=== PATIENT | female | born 1985 | race Caucasian/White ===

== ENCOUNTER → 2018-06-02 | Outpatient (CLI) | payer OTHER ==
--- NOTE | 2018-06-02 14:06 | US ---
EXAMINATION TYPE: Transabdominal DATE OF EXAM: 12/02/17 COMPARISON: NONE CLINICAL HISTORY: Z36 CONFIRM DATES. EXAM PERFORMED: Transabdominal (TA) EXAM MEASUREMENTS: GESTATIONAL AGE / DATING Physician Established: Not yet established Dates by LMP: (8 weeks/6 days) EDC: 01/06/2019 Dates by First Scan: No previous this is first scan Dates by Current Scan for: (9 weeks/0 days) EDC: 01/05/2019 MATERNAL ANATOMY Uterus: 10.8 x 5.8 x 6.1 cm Right Ovary: 2.5 x 1.4 x 1.2 cm Left Ovary: 2.7 x 2.1 x 1.4 cm Post CDS / Adnexa: wnl Presence of free fluid: No Presence of corpus luteal cyst: Cyst visualized left ovary measuring 1.3 x 1.0 x 1.2 cm Presence of subchorionic bleed: No GESTATION / SURVEY CRL: 2.2 cm (9 weeks/0 days) Yolk Sac (normal less than 6mm): 3 mm Heart Rate: 174 bpm Rhythm: Normal IUP: Viable IUP Date of LMP: 04/01/2018 Beta HcG (if available): Not available at this time Viable IUP, measurements consistent with dates. IMPRESSION: Viable intrauterine of 9 weeks 0 days and an EDC of 01/05/2019.
== END | disposition home or self-care (01) ==
LOC: RADUSWWP 09:46
PROVIDERS: ATTEND Obstetrics & Gynecology
DX: Z36.9 Encounter for antenatal screening, unspecified (principal); Z3A.09 9 weeks gestation of pregnancy
CPT/HCPCS: 76801

== ENCOUNTER → 2018-08-13 | Outpatient (CLI) | payer OTHER ==
--- NOTE | 2018-08-13 09:57 | US ---
EXAMINATION TYPE: US OB anatomy transabd DATE OF EXAM: 08/13/2018 COMPARISON: First trimester ultrasound June 02, 2018 HISTORY: O36.62F0 large for dates, second trimester TECHNIQUE: Transabdominal (TA) EXAM MEASUREMENTS: GESTATIONAL AGE / DATING Physician Established: (19 weeks/1 day) EDC: 01/06/2019 Dates by LMP: (19 weeks/1 day) EDC: 01/06/2019 Dates by First Scan: (19 weeks/1 day) EDC: 01/06/2019 Dates by Current Scan for: (20 weeks/0 days) EDC: 12/31/2018 SURVEY IUP: Single PLACENTA: Fundal PREVIA: No previa EUNICE: 10.7 cm Normal CERVICAL LENGTH (transabdominal: norm > 3.0cm): 3.7 cm BIOMETRY PRESENTATION: Vertex LIE: Longitudinal BPD: 4.7 cm 20 weeks / 1 day HC: 17.3 cm 19 weeks / 6 days AC: 14.4 cm 19 weeks / 5 days FL: 3.3 cm 20 weeks / 2 days ESTIMATED WEIGHT IN GRAMS: 325.05 grams ESTIMATED WEIGHT IN LBS/OZ: 0 lbs. 11.0 oz. WEIGHT PERCENTAGE BASED ON ESTABLISHED DATE: 89.5 % HC/AC: 1.21 Normal FL/AC: 23.01 Normal HEART RATE: 155 bpm RHYTHM: Normal ANATOMY SEEN (within normal limits): * Lateral Vent (< 1 cm) 0.4 cm * Cisterna Magna (< 1.1 cm) 0.4 cm * Nuchal Fold (< 0.6 cm) 0.58 cm * Cerebellum (varies with age) 2.0 cm Choroid Plexus (bilateral) Midline Falx Cavus Septi Pellucidi Four Chamber Heart Outflow tracts: LVOT/RVOT Stomach Situs Nose / Lips Diaphragm Kidneys (bilateral) Bladder Cord Insert Three Vessel Cord Longitudinal Spine Transverse Spine Arms (bilateral) Legs (bilateral) Single, live, IUP,20 weeks/0 days, EDC: 12/31/2018, HEART RATE: 155 bpm. Single live intrauterine gestation is redemonstrated. Normal cephalad presentation to fetus is curren tly seen. No ultrasound evidence for placenta previa. Amniotic fluid index is calculated within vandana l limits. biometry measurements are congruent and felt within normal limits. Detailed anatomica l survey shows no suspicious abnormality during real-time scanning. Still images saved show suboptima l visualization of four-chamber heart and outflow tracts which are better seen towards end of study. IMPRESSION: As above
== END ==
LOC: RADUSWWP 08:15
PROVIDERS: ATTEND Obstetrics & Gynecology
DX: O36.62X0 Maternal care for excessive fetal growth, second trimester, not applicable or unspecified (principal); Z3A.20 20 weeks gestation of pregnancy
CPT/HCPCS: 76811

== ENCOUNTER → 2018-12-02 | Outpatient (CLI) | payer OTHER ==
--- NOTE | 2018-12-02 11:33 | US ---
EXAMINATION TYPE: US OB >= 14 wk fetus DATE OF EXAM: 12/02/2018 COMPARISON: US CLINICAL HISTORY: [id number] Large For Dates; TECHNIQUE: Transabdominal (TA) GESTATIONAL AGE / DATING Physician Established: ( 35 weeks/0 days) EDC: 01/06/2019 Dates by LMP: (35 weeks/0 days) EDC: 01/06/2019 Dates by First Scan: (35 weeks/0 days) EDC: 01/06/2019 Dates by Current Scan: (35 weeks/6 days) EDC: 12/31/2018 Beta HCG (if available): NA SURVEY IUP: Single PLACENTA: Fundal Anterior PREVIA: No Previa EUNICE: 11.7 cm Normal CERVICAL LENGTH (transabdominal: norm > 3.0cm): 3.8 cm BIOMETRY PRESENTATION: Vertex LIE: Transverse with head maternal right BPD: 9.4 cm 38 weeks / 0 days HC: 32.4 cm 36 weeks / 5 days AC: 31.6 cm 35 weeks / 4 days FL: 6.9 cm 35 weeks / 3 days ESTIMATED WEIGHT IN GRAMS: 2790.0 grams ESTIMATED WEIGHT IN LBS/OZ: 6 lbs. 2 oz. WEIGHT PERCENTAGE BASED ON ESTABLISHED DATES: 72.2% HC/AC: 1.03 Normal FL/AC: 21.87 Normal HEART RATE: 161 bpm RHYTHM: Normal Single, viable IUP,35 weeks/6 days, EDC: 12/31/2018, HR 161bpm. anatomy assessment was not performed. IMPRESSION Single, viable IUP,35 weeks/6 days, EDC: 12/31/2018, HR 161bpm. :
== END | disposition home or self-care (01) ==
LOC: RADUSWWP 09:42
PROVIDERS: ATTEND Obstetrics & Gynecology
DX: O36.63X0 Maternal care for excessive fetal growth, third trimester, not applicable or unspecified (principal); Z3A.35 35 weeks gestation of pregnancy
CPT/HCPCS: 76805

== ENCOUNTER 2018-12-05 17:15 | Outpatient (CLI) | payer OTHER ==
[2018-12-05 17:57] VITALS: PULSE 82; RESP 16; TEMP 97.4
[2018-12-05 17:59] LABS: Amorphous Sediment,Urine Occasional /hpf; Appearance,Urine Cloudy (Clear); Bacteria,Urine Moderate /hpf; Bilirubin,Urine Negative (Negative); Blood,Urine Negative (Negative); Color,Urine Light Yellow; Glucose,Urine (UA) Negative (Negative); Ketones,Urine Negative (Negative); Leukocyte Esterase,Urine Negative (Negative); Nitrite,Urine Negative (Negative); PH, Urine 7.5 (5.0-8.0); Protein,Urine Negative (Negative); RBC,Urine 1 /hpf (0-5); Squamous Epithelial Cell,Urine 4 /hpf (0-4); Urobilinogen,Urine <2.0 mg/dL (<2.0); WBC,Urine 4 /hpf (0-5)
[2018-12-05 18:09] LABS: Creatinine,Urine Random 44.5 mg/dL
[2018-12-05 18:41] LABS: ALT 28 U/L (9-52); AST 21 U/L (14-36); Blood Urea Nitrogen 7 mg/dL (7-17); LDH 393 U/L (313-618)
[2018-12-05 18:48] LABS: Anisocytosis Slight; Basophils % (A) 0 %; Eosinophils # (A) 0.1 k/uL (0-0.7); Eosinophils % (A) 1 %; HCT 35.1 % (34.0-46.0); HGB 12.7 gm/dL (11.4-16.0); Lymphocytes # (A) 2.1 k/uL (1.0-4.8); Lymphocytes % (A) 26 %; MCH 32.9 pg (25.0-35.0); MCHC 36.1 g/dL (31.0-37.0); MCV 91.1 fL (80.0-100.0); Mean Platelet Volume 10.1; Monocytes # (A) 0.5 k/uL (0-1.0); Monocytes % (A) 6 %; Neutrophils # (A) 5.5 k/uL (1.3-7.7); Neutrophils % (A) 66 %; Platelet Count 284 k/uL (150-450); RBC 3.85 m/uL (3.80-5.40); RDW 16.2 % (11.5-15.5); WBC 8.3 k/uL (3.8-10.6)
[2018-12-05 18:57] LABS: Uric Acid 3.3 mg/dL (3.7-7.4)
[2018-12-05] MEDS ORDERED: BETAMET ACET-BETAMETH SOD PHOS 6 MG/ML VIAL IM SCH (19:15)
--- NOTE | 2018-12-05 21:34 | US ---
EXAMINATION TYPE: US OB limited DATE OF EXAM: 12/05/2018 COMPARISON: NONE CLINICAL HISTORY: EUNICE . EXAM PERFORMED: Transabdominal (TA) GESTATIONAL AGE / DATING Physician Established: (35 weeks/3 days) EDC: 01/06/19 No growth performed on today?s study per ordering physician SURVEY EUNICE: 12.0 cm Ultrasound evidence of premature rupture of membranes? no HEART RATE: 151 bpm bpm RHYTHM: Regular IMPRESSION: 1. EUNICE 12.0 cm within normal limits.
[2018-12-05 23:30] VITALS: BP 134/96
--- NOTE | 2018-12-05 23:47 | P.MSEPDOC ---
Presenting Problems - Arrival Data Date of Arrival on Unit: 12/05/18 Time of Arrival on Unit: 17:15 Mode of Transport: Portable - Complaint OB-Reason for Admission/Chief Complaint: PIH Medical History - Information : 1 Para: 0 Term: 0 : 0 Abortions: Spontaneous or Elective: 0 Number of Living Children: 0 - Gestational Age Gestational Age by JACK (wks/days): 35 Weeks and 2 Days Review of Systems - Review of Systems Constitutional: No problems Breast: No problems ENT: No problems Cardiovascular: No problems Respiratory: No problems Gastrointestinal: No problems Genitourinary: No problems Musculoskeletal: No problems Neurological: No problems Skin: No problems Vital Signs - Temperature Temperature: 97.4 F Temperature Source: Temporal Artery Scan - Pulse Left Pulse Oximetery Pulse Rate: 82 Pulse Assessment Method: Pulse Oximetry - Respirations Respiratory Rate: 16 Oxygen Delivery Method: Room Air - Blood Pressure Right Arm Blood Pressure: 134/96 Blood Pressure Mean: 108 Blood Pressure Source: Automatic Cuff Medical Screen Scoring (Pre) - Cervical Exam Dilation: Exam Deferred Effacement: Exam Deferred Membranes: Intact - Uterine Contractions Frequency: N/A Duration: N/A Intensity: N/A - Maternal Vital Signs Maternal Temperature: N/A Maternal Blood Pressure: Systolic >139 = 2 Signs of Preeclampsia: N/A Maternal Respirations: N/A - Pain Assessment Pain Location and Character: Generalized Pain Scale Used: Numeric (1 - 10) Pain Intensity: 0 Pain Management Goal: 0 Pain Behavior: Vocalization - Maternal Trauma Maternal Trauma: N/A - Assessment Baseline FHR: 145 Heart Rate - NICHD Category: Category I (Normal) = 0 NST: Reactive Position: N/A Station: N/A - Total Score Total Score (Pre): 2 - Level of Risk Level of Risk: Low (0-5) Physician Notification (Pre) - Physician Notified Physician Notified Date: 12/05/18 Physician Notified Time: 17:41 Physician/Practitioner Notifed:: Spoke With: Dr. Jung New Order Received: Yes ([facility] labs, bp q30,mins) Medical Screen Scoring (Post) - Cervical Exam Dilation: Exam Deferred Effacement: Exam Deferred - Uterine Contractions Frequency: N/A - Maternal Vital Signs Maternal Blood Pressure: Diastolic > 89 = 1 Signs of Preeclampsia: N/A Maternal Respirations: N/A - Total Score Total Score (Post): 1 - Post Treatment Level of Risk Post Treatment Level of Risk: Low (0-5) Physician Notification (Post) - Physician Notified Physician Notified Date: 12/05/18 Physician Notified Time: 20:20 Physician/Practitioner Notified:: Dr Erich Myles Order Received: Yes - Notification Comment Comment: educate pt on preeclampsia s/sx, follow up tomorrow for second dose of Celestone and an NST, keep appt with Dr Wolfe for this Friday Disposition - Disposition OB Disposition: Discharge to home Discharge Date: 12/05/18 Discharge Time: 20:40 I agree with the RN Medical Screening Exam: Yes Physician's MSE Comment: BPs are elevated. She has no headache, vision changes, RUQ pain or swelling. REflexes are normal. She was advised of all s/s of pre-eclampsia. HEr labs were all wnl except the pc ratio which was 0.404 which puts her in mild pre- eclampsia. NST reactive and EUNICE=12cm. I gave her a dose of celestone in case she will need to be delivered before 37 weeks. She will return tomorrow for another dose and an NST and BP check. If she remains in the mild pre-eclampsia range, and baby is showing a good tracing I will have her follow up this week with DR Wolfe and M for US with dopplers and BPP. Risk & Benefit of care provided described in d/c instruction: Yes Diagnosis: MILD TO MODERATE PRE-ECLAMPSIA, THIRD TRIMESTER
== END 2018-12-05 20:40 | disposition home or self-care (01) ==
LOC: FBPOP 17:15
PROVIDERS: ATTEND Obstetrics & Gynecology
DX: O14.03 Mild to moderate pre-eclampsia, third trimester (principal); Z3A.35 35 weeks gestation of pregnancy
CPT/HCPCS: 59025; 99214; 96372; 82570; 84156; 82565; 83615; 84450; 84460; 84520; 84550; 85025; 81001; 76815; J0702

== ENCOUNTER 2018-12-06 16:25 | Outpatient (CLI) | payer OTHER ==
[2018-12-06] MEDS ORDERED: BETAMET ACET-BETAMETH SOD PHOS 6 MG/ML VIAL IM SCH (17:45)
[2018-12-06 18:39] VITALS: BP 126/81; PULSE 95; RESP 16; TEMP 97.9
--- NOTE | 2018-12-07 08:30 | P.MSEPDOC ---
Presenting Problems - Arrival Data Date of Arrival on Unit: 12/06/18 Time of Arrival on Unit: 16:25 Mode of Transport: Ambulatory - Complaint OB-Reason for Admission/Chief Complaint: NST, Celestone Injection Medical History - Information : 1 Para: 0 Term: 0 : 0 Abortions: Spontaneous or Elective: 0 Number of Living Children: 0 - Gestational Age Gestational Age by JACK (wks/days): 35 Weeks and 4 Days Review of Systems - Review of Systems Constitutional: No problems Breast: No problems ENT: No problems Cardiovascular: No problems Respiratory: No problems Gastrointestinal: No problems Genitourinary: No problems Musculoskeletal: No problems Neurological: No problems Skin: No problems Vital Signs - Temperature Temperature: 97.9 F Temperature Source: Temporal Artery Scan - Pulse Right Sitting Pulse Rate: 95 Pulse Assessment Method: Automatic Cuff - Respirations Respiratory Rate: 16 Oxygen Delivery Method: Room Air - Blood Pressure Right Arm Blood Pressure: 126/81 Blood Pressure Mean: 96 Blood Pressure Source: Automatic Cuff Medical Screen Scoring (Pre) - Cervical Exam Dilation: Exam Deferred Effacement: Exam Deferred Membranes: Intact - Uterine Contractions Frequency: < 36 weeks = 6 Duration: > 40 seconds = 2 - Maternal Vital Signs Maternal Temperature: N/A Maternal Blood Pressure: N/A Maternal Respirations: N/A - Pain Assessment Pain Scale Used: Numeric (1 - 10) Pain Intensity: 4 Pain Management Goal: 6 Pain Description: *Acute Pain Frequency: Occasional Pain Duration Units: Hours Pain Behavior: None Exhibited Pain Aggravating Factors: None - Maternal Trauma Maternal Trauma: N/A - Assessment Baseline FHR: 130 Heart Rate - NICHD Category: Category I (Normal) = 0 NST: Reactive Position: N/A Station: N/A - Total Score Total Score (Pre): 8 - Level of Risk Level of Risk: Medium (6-9) Physician Notification (Pre) - Physician Notified Physician Notified Date: 12/06/18 Physician Notified Time: 17:32 Physician/Practitioner Notifed:: Erich New Order Received: Yes (celestone, d/c home) - Notification Comment Comment: Pt seen by Dr. Jung in triage Disposition - Disposition OB Disposition: Discharge to home Discharge Date: 12/06/18 Discharge Time: 18:03 I agree with the RN Medical Screening Exam: Yes Risk & Benefit of care provided described in d/c instruction: Yes Diagnosis: GESTATIONAL HTN W/O SIGNIFICANT PROTEINURIA, THIRD TRIMESTER
== END 2018-12-06 18:03 | disposition home or self-care (01) ==
LOC: FBPOP 16:25
PROVIDERS: ATTEND Obstetrics & Gynecology
DX: O13.3 Gestational [pregnancy-induced] hypertension without significant proteinuria, third trimester (principal); Z3A.35 35 weeks gestation of pregnancy
CPT/HCPCS: 59025; 99213; 96372; J0702

== ENCOUNTER 2018-12-15 15:32 | Inpatient (IN) | payer OTHER ==
--- NOTE | 2018-12-15 12:44 | P.HPOB ---
History of Present Illness H&P Date: 12/15/18 Chief Complaint: Gestational hypertension This is a 33 y.o. female, 1, para 0 with an estimated date of confinement of 01/06/2019, estimated gestational age of 36-6/7 weeks who presents for cervidil cervical ripening followed by oxytocin induction of labor due to gestational hypertension. She was intitially diagnosed with elevated BP on 12/04/2018 & 12/05/2018. Her protein/creatinine ratio was 0.4. She did receive 2 doses of Celestone at that time. Since then her BPs have been ok and labs normal. She has no other sx, but her P/C ratio is still elevated to 0.31. I spoke with Dr. Gibson ([facility]), who recommends she be delivered at 37 weeks. She is feeling good movement and denies headaches or blurred vision. labs: GC/Chlamydia-neg Hepatitis B surface antigen-neg Rubella-immune RPR-NR Blood type-A+ Antibody screen-neg HIV-NR Hemoglobin-13.1 Random glucose-54 Quad-neg 1 hour GTT-156, 3 hour GTT-WNL GBS-neg OB Hx: 1st [employer] Hx: No hx STDs Social Hx: . 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 ctxs) Genitourinary: Reports pelvic pain, Reports Musculoskeletal: Reports low back pain Integumentary: Denies pruritus, Denies rash Neurological: Denies numbness, Denies weakness Psychiatric: Denies anxiety, Denies depression Past Medical History Additional Past Medical History / Comment(s): Gestational hypertension History of Any Multi-Drug Resistant Organisms: None Reported Past Surgical History: Breast Surgery (R. breast biopsy) Past Anesthesia/Blood Transfusion Reactions: No Reported Reaction Past Psychological History: ADD/ADHD Smoking Status: Never smoker Past Alcohol Use History: None Reported Past Drug Use History: None Reported - Past Family History Mother Family Medical History: No Reported History Medications and Allergies Home Medications Medication Instructions Recorded Confirmed Type Pnv 11/Iron Fum/Folic Acid/Om3 1 each PO DAILY 12/05/18 12/06/18 History [Virt-Cal Dha Softgel] Allergies Allergy/AdvReac Type Severity Reaction Status Date / Time amoxicillin AdvReac Rash/Hives Verified 12/06/18 17:00 Exam Osteopathic Statement: *. No significant issues noted on an osteopathic structural exam other than those noted in the History and Physical/Consult. HEENT: within normal limits Heart: regular rate and rhythm Lungs: clear to auscultation bilaterally Abdomen: Cervix: closed/70%/-1 heart tones: category 1, reactive Contractions: none Extremities: neg. Ezio's Assessment and Plan (1) Gestational hypertension affecting first Status: Acute Code(s): O13.9 - GESTATIONAL HTN W/O SIGNIFICANT PROTEINURIA, UNSP TRIMESTER SNOMED Code(s): 06273784 Plan: Proceed with cervidil cervical ripening followed by oxytocin induction of labor. Epidural anesthesia if desired.
[2018-12-15] MEDS ORDERED: DINOPROSTONE 10 MG INSERT.ER VAGINAL ONE (15:48)
[2018-12-15] MEDS ORDERED: BUTORPHANOL 1 MG/ML 1 ML VIAL IV PRN (15:48)
[2018-12-15] MEDS ORDERED: ZOLPIDEM 5 MG TAB PO PRN (15:48)
[2018-12-15 15:56] VITALS: BMI 26.6
[2018-12-16] MEDS ORDERED: LIDOCAINE 0.5% (PF) 5 MG/ML (50 ML SDV) SQ PRN (04:18)
[2018-12-16] MEDS ORDERED: LIDOCAINE 1% 20 ML VIAL (10MG/ML) FOR IV START INTRADERMA PRN (04:18)
[2018-12-16] MEDS ORDERED: OXYTOCIN 10 UNIT/ML 1 ML VIAL IM PRN (04:18)
[2018-12-16] MEDS ORDERED: OXYTOCIN 30 UNITS/500 ML NS 30 UNIT in SALINE 1 500ML.BAG IV SCH (04:18)
[2018-12-16] MEDS ORDERED: TERBUTALINE 1 MG/ML VIAL SQ PRN (04:18)
[2018-12-16] MEDS ORDERED: CARBOPROST TROMETHAMINE 250 MCG/ML 1 ML AMP IM PRN (04:18)
[2018-12-16 05:24] LABS: Glucose,Urine (UA) Negative (Negative); Ketones,Urine Negative (Negative); Protein,Urine Trace (Negative)
[2018-12-16] MEDS: LACTATED RINGERS 1,000 ML IV SCH ×2 (06:20→19:56)
[2018-12-16 06:38] LABS: Basophils % (A) 0 %; Eosinophils # (A) 0.1 k/uL (0-0.7); Eosinophils % (A) 1 %; HCT 42.7 % (34.0-46.0); HGB 14.5 gm/dL (11.4-16.0); Lymphocytes # (A) 2.1 k/uL (1.0-4.8); Lymphocytes % (A) 15 %; MCH 32.7 pg (25.0-35.0); MCHC 34.1 g/dL (31.0-37.0); MCV 95.9 fL (80.0-100.0); Mean Platelet Volume 7.1; Monocytes # (A) 0.7 k/uL (0-1.0); Monocytes % (A) 5 %; Neutrophils # (A) 10.6 k/uL (1.3-7.7); Neutrophils % (A) 78 %; Platelet Count 331 k/uL (150-450); RBC 4.45 m/uL (3.80-5.40); RDW 13.1 % (11.5-15.5); WBC 13.5 k/uL (3.8-10.6)
[2018-12-16] MEDS ORDERED: BUTORPHANOL 1 MG/ML 1 ML VIAL IV PRN (07:20)
[2018-12-16] MEDS ORDERED: SODIUM CHLORIDE 0.9% 100 ML BAG ONE (11:17)
[2018-12-16] MEDS ORDERED: ROPIVACAINE 5MG/ML 20ML VIAL ONE (11:17)
[2018-12-16] MEDS ORDERED: fentaNYL (PF) 50 MCG/ML 5 ML AMP ONE (11:17)
[2018-12-16] MEDS ORDERED: ROPIVACAINE 100 MG, fentaNYL (PF) 200 MCG in SODIUM CHLORIDE 0.9% 76 ML EPIDURAL ONE (12:43)
--- NOTE | 2018-12-16 13:19 | P.PROBDLV ---
Vaginal Delivery Note - . Vaginal Delivery Note: The patient underwent Cervidil cervical ripening followed by oxytocin induction of labor. She was ruptured this morning when she was approximately 1-1/2 cm/80%/-1 station. She did receive epidural anesthesia at 3 cm. When she reached complete dilation, she began pushing. 's head came to a crown. With one further push, the 's head delivered across the perineum followed by the anterior shoulder in a left occiput anterior lie. Nuchal cord times one was reduced around the infant's head. Nose and mouth were bulb suctioned. With one remaining push, the remainder the easily delivered and was placed on mother's abdomen. Cord was clamped and cut and infant was taken to warmer for evaluation. A viable male infant was noted with scores of 8 at 1 minute and 9 at 5 minutes and weight of 6 lbs. 1 oz. Placenta delivered shortly thereafter, intact, with a three-vessel cord. Marginal cord insertion was noted. Uterus contracted fairly well after oxytocin was given and uterine massage was carried out. Inspection of the perineum revealed a second-degree perineal laceration. This area was anesthetized with 1% lidocaine and then sutured with 3-0 and 2-0 Vicryl suture in the usual multilayer fashion. Both mother and infant are in stable condition. Estimated blood loss is approximately 150 mL's.
[2018-12-16] MEDS ORDERED: diphenhydrAMINE 50 MG/ML 1 ML VIAL IVP PRN ×2 (13:22)
[2018-12-16] MEDS ORDERED: HYDROCORTISONE 2.5% RECTAL CREAM 30 GM TUBE RECTAL PRN (13:22)
[2018-12-16] MEDS ORDERED: ACETAMINOPHEN TAB 325 MG TAB PO PRN (13:22)
[2018-12-16] MEDS ORDERED: LANOLIN CREAM 5 GM TUBE TOPICAL PRN (13:22)
[2018-12-16] MEDS ORDERED: SIMETHICONE 80 MG CHEWABLE PO PRN (13:22)
[2018-12-16] MEDS ORDERED: WITCH HAZEL 1 EACH MED..PAD TOPICAL PRN (13:22)
[2018-12-16] MEDS ORDERED: BENZOCAINE/MENTHOL SPRAY 1 GM/SPRAY AEROSOL TOPICAL PRN (13:22)
[2018-12-16] MEDS ORDERED: diphenhydrAMINE 50 MG CAP PO PRN (13:22)
[2018-12-16] MEDS ORDERED: diphenhydrAMINE 25 MG CAP PO PRN (13:22)
[2018-12-16] MEDS ORDERED: IBUPROFEN 600 MG TAB PO PRN (13:22)
[2018-12-16] MEDS ORDERED: ZOLPIDEM 5 MG TAB PO PRN (13:22)
[2018-12-16] MEDS ORDERED: OXYTOCIN 20 UNITS/1000 ML NS 1,000 ML IV SCH (13:30)
[2018-12-16] MEDS: SENNOSIDES-DOCUSATE SODIUM 1 EACH TAB PO SCH (19:32)
[2018-12-17] MEDS ORDERED: LABETALOL 100 MG TAB PO PRN (00:17)
[2018-12-17 06:49] LABS: Basophils % (A) 0 %; Eosinophils # (A) 0.1 k/uL (0-0.7); Eosinophils % (A) 0 %; HCT 35.6 % (34.0-46.0); HGB 12.1 gm/dL (11.4-16.0); Lymphocytes # (A) 2.5 k/uL (1.0-4.8); Lymphocytes % (A) 21 %; MCH 32.5 pg (25.0-35.0); MCHC 34.1 g/dL (31.0-37.0); MCV 95.3 fL (80.0-100.0); Monocytes # (A) 0.5 k/uL (0-1.0); Monocytes % (A) 4 %; Neutrophils # (A) 8.5 k/uL (1.3-7.7); Neutrophils % (A) 73 %; Platelet Count 232 k/uL (150-450); RBC 3.73 m/uL (3.80-5.40); RDW 13.4 % (11.5-15.5); WBC 11.7 k/uL (3.8-10.6)
[2018-12-17] MEDS: SENNOSIDES-DOCUSATE SODIUM 1 EACH TAB PO SCH ×2 (07:31→19:39)
--- NOTE | 2018-12-17 08:36 | P.DS ---
Providers Date of admission: 12/15/18 15:32 Expected date of discharge: 12/17/18 Attending physician: Bettye Wolfe Primary care physician: Julius Walls - Discharge Diagnosis(es) (1) Gestational hypertension affecting first Current Visit: No Status: Acute Hospital Course: This is a 33-year-old female 1 para 0 at 37 weeks who presented or induction of labor on 12/15/2018 secondary to gestational hypertension. She underwent cervical ripening with Cervidil followed by oxytocin induction of labor. She did receive epidural anesthesia. She delivered vaginally a viable male with scores of 8 at 1 minute and 9 at 5 minutes and infant weight of 6 lbs. 1 oz. Her course has been essentially uncomplicated. She did have some mildly elevated blood pressures following delivery but they have normalized this morning. She denies any headaches or blurry vision. She denies any swelling. Lochia is decreasing. She is working on breast-feeding. Vital signs are stable. Abdomen is soft with fundus firm and nontender. Extremities show negative Homans. Impression is status post vaginal delivery day #1. Plan is to discharge home later today. She is advised follow-up in the office in 1 week for a blood pressure check and in 6 weeks for a check. He is advised to call the office if she has any further questions or concerns prior to her appointment time. She is advised to call or return to the hospital if she starts having severe headaches, blurry vision, or significant swelling in her upper extremities. Routine instructions are given. Procedures: Cervidil cervical ripening Oxytocin induction of labor Spontaneous vaginal delivery of a viable male on or 2018 Patient Condition at Discharge: Stable Plan - Discharge Summary New Discharge Prescriptions: No Action Pnv 11/Iron Fum/Folic Acid/Om3 [Virt-Cal Dha Softgel] 1 each PO DAILY Discharge Medication List Pnv 11/Iron Fum/Folic Acid/Om3 [Virt-Cal Dha Softgel] 1 each PO DAILY 12/05/18 [History] Follow up Appointment(s)/Referral(s): Bettye Wolfe DO [Doctor of Osteopathic Medicine] - 1 Week Activity/Diet/Wound Care/Special Instructions: Instructions 1. Do not begin any exercise program for 3 weeks. 2. Do not resume sexual relations for 3 weeks or longer if uncomfortable. 3. You may take tub baths or showers at any time. 4. You may use tampons if desired after 3 weeks. 5. Keep the area of episiotomy (stitches) clean and dry. 6. If you are not nursing, wear a good fitting, supportive bra during the day and limit fluid intake for at least 1 week to prevent breast engorgement. 7. Call the office, [phone], within the next week to make appointment for your 6 week checkup if it has not already been made. 8. Report any of the following occurrences to the doctor promptly: a. Heavy, excessive bleeding b. Chills, fever c. Burning or frequency of urination d. Pain or redness and breasts if nursing e. Increasing pain or swelling in episiotomy (stitches). In addition to the above instructions, the following additional should be followed: 1. No heavy lifting or straining (exercising) until after 6 week checkup. 2. Keep abdominal incision clean and dry: You may wear a dressing if more comfortable. 3. Make office appointment for 10 days after going home or as instructed by her doctor. Discharge Disposition: HOME SELF-CARE
[2018-12-18 10:04] VITALS: BP 142/80; PULSE 86; RESP 18; TEMP 98.7
[2018-12-18] MEDS ORDERED: DIPH,PERTUS(ACELL)TETVAC-LF 0.5 ML VIAL IM ONE (10:06)
[2018-12-18] MEDS: SENNOSIDES-DOCUSATE SODIUM 1 EACH TAB PO SCH (11:10)
== END 2018-12-18 15:30 | disposition home or self-care (01) | DRG 807 ==
LOC: 4FBP 15:32
PROVIDERS: ADMIT Obstetrics & Gynecology; ATTEND Obstetrics & Gynecology
PROC: 3E0P7VZ Introduction of Hormone into Female Reproductive, Via Natural or Artificial Opening (ICD-10-PCS; 2018-12-15)
PROC: 3E033VJ Introduction of Other Hormone into Peripheral Vein, Percutaneous Approach (ICD-10-PCS; 2018-12-15)
PROC: 10907ZC Drainage of Amniotic Fluid, Therapeutic from Products of Conception, Via Natural or Artificial Opening (ICD-10-PCS; 2018-12-15)
PROC: 10E0XZZ Delivery of Products of Conception, External Approach (ICD-10-PCS; principal; 2018-12-16)
PROC: 0KQM0ZZ Repair Perineum Muscle, Open Approach (ICD-10-PCS; 2018-12-16)
PROC: 00HU33Z Insertion of Infusion Device into Spinal Canal, Percutaneous Approach (ICD-10-PCS; 2018-12-16)
PROC: 3E0R3NZ Introduction of Analgesics, Hypnotics, Sedatives into Spinal Canal, Percutaneous Approach (ICD-10-PCS; 2018-12-16)
DX: O70.1 Second degree perineal laceration during delivery (principal); Z37.0 Single live birth; O13.4 Gestational [pregnancy-induced] hypertension without significant proteinuria, complicating childbirth; Z3A.36 36 weeks gestation of pregnancy; O69.81X0 Labor and delivery complicated by cord around neck, without compression, not applicable or unspecified; Z88.0 Allergy status to penicillin
CPT/HCPCS: 81003; 85025; 86850; 86900; 86901; 90715